=== PATIENT | male | born 1960 | race Caucasian/White ===

== ENCOUNTER 2016-12-07 06:29 | Inpatient (IN) | payer OTHER ==
[~2016-12-07] VITALS: Ht 180.3 cm; Wt 87.2 kg
[~2016-12-07 06:29] MED LIST: DAILY VALUE1 EACH PO; NAPROSYN500 MG PO; PROBIOTIC1 EAC2 PO; TRAMADOL HCL50 MG PO
[2016-12-07 07:22] VITALS: BP 154/93
[2016-12-07 12:34] LABS: MCV 101.6 FL (86-99)
[2016-12-07 13:53] VITALS: BP 155/96
[2016-12-07 15:47] VITALS: BP 174/84
[2016-12-07 20:04] VITALS: BP 159/100
[2016-12-08 00:23] VITALS: BP 168/96
[2016-12-08 04:14] VITALS: BP 137/98
[2016-12-08 04:57] LABS: HEMATOCRIT 36.4 % (38.0-50.0); MCV 100.8 FL (86-99)
[2016-12-08 05:05] LABS: CHLORIDE 103 mEq/L (99-109); POTASSIUM 4.2 mEq/L (3.7-5.4); SODIUM 135 mEq/L (136-147)
[2016-12-08 05:07] LABS: GLUCOSE 172 mg/dL (70-99)
[2016-12-08 05:08] LABS: ANION GAP 8 MEQ/L (2-14)
[2016-12-08 05:11] LABS: GFR ESTIMATE (CALCULATED) > 59 mL/min/
[2016-12-08 05:12] LABS: UREA NITROGEN (BUN) 13 mg/dL (9-23)
[2016-12-08 08:00] VITALS: BP 178/84
[2016-12-08 12:00] VITALS: BP 131/69
[2016-12-08 15:42] VITALS: BP 135/72
[2016-12-08 20:01] VITALS: BP 134/76
[2016-12-09 00:30] VITALS: BP 155/96
[2016-12-09 04:30] VITALS: BP 176/74
[2016-12-09 08:00] VITALS: BP 117/72
[2016-12-09] MEDS ORDERED: OXYCODONE HCL5 MG PO (09:50)
[2016-12-09] MEDS ORDERED: XARELTO10 MG PO (09:50)
[2016-12-09 12:03] VITALS: BP 129/71
[2016-12-09 16:09] VITALS: BP 137/82
== END 2016-12-09 16:31 | DRG 470 ==
LOC: 2SOUTH 06:29 → 3WEST 06:29 → 2SOUTH 09:01 → 3WEST 13:27 → 2SOUTH 15:42 → 3WEST 12-09 16:31
PROVIDERS: Orthopaedic Surgery; Physician Assistant
PROC: 0SRB0JZ Replacement of Left Hip Joint with Synthetic Substitute, Open Approach (ICD-10-PCS; principal; 2016-12-07)
DX: M16.12 Unilateral primary osteoarthritis, left hip (principal)
CPT/HCPCS: 36415; 80048; 85014; 85018; 85610; 85730; 86900; 86901; J0131; J0690; J1100; J1885; J2250; J2405; J3010; J7050; J7120; S0020